=== PATIENT | female | born 1985 | race Caucasian/White ===

== ENCOUNTER 2018-04-01 15:50 | Emergency (ER) | payer MEDICAID ==
[2018-04-01 17:42] VITALS: BP 131/74
== END 2018-04-01 17:42 | disposition home or self-care (01) ==
LOC: ED 15:50
DX: T16.1XXA Foreign body in right ear, initial encounter (principal); L08.9 Local infection of the skin and subcutaneous tissue, unspecified; X58.XXXA Exposure to other specified factors, initial encounter; Y93.89 Activity, other specified; Y92.89 Other specified places as the place of occurrence of the external cause; Y99.8 Other external cause status
CPT/HCPCS: J2001

== ENCOUNTER 2018-04-21 11:51 | Emergency (ER) | payer MEDICAID ==
[~2018-04-21] VITALS: Ht 162.6 cm; Wt 76.7 kg
[2018-04-21 12:02] VITALS: Ht 162.6 cm; Wt 76.7 kg
[2018-04-21 12:52] LABS: UA SPECIFIC GRAVITY 1.025 (1.005-1.035); microscopic required? YES; urine erythrocyte 3+ (NEGATIVE)
[2018-04-21 13:34] VITALS: BP 117/75
== END 2018-04-21 13:34 | disposition home or self-care (01) ==
LOC: ED 11:51
PROVIDERS: Emergency Medicine
DX: N39.0 Urinary tract infection, site not specified (principal)